=== PATIENT | male | born 1995 | race Caucasian/White ===

== ENCOUNTER 2020-06-28 15:52 | Emergency (ER) | payer SELFPAY ==
[~2020-06-28] VITALS: Ht 182.9 cm; Wt 122.0 kg
[2020-06-28 15:59] VITALS: Ht 182.9 cm; Wt 122.0 kg
[2020-06-28 16:56] LABS: microscopic required? NO
[2020-06-28 17:11] LABS: BASOPHIL % 0.5 % (0.2-1.5); PLATELET COUNT 343 x10^3mcL (152-348); RED CELL DISTRIBUTION WIDTH 13.8 % (12.1-16.2)
[2020-06-28 17:12] LABS: urine erythrocyte NEGATIVE (NEGATIVE)
[2020-06-28 17:29] LABS: CALCIUM 8.7 mg/dL (8.5-10.1); CARBON DIOXIDE 32.1 mmol/L (21-32); CHLORIDE SERUM 103 mmol/L (98-107); CREATININE SERUM 0.9 mg/dL (0.7-1.3); GFR1 > 60 mL/min; GLUCOSE SERUM 93 mg/dL (74-106); SODIUM SERUM 140 mmol/L (136-145)
[2020-06-28 17:42] LABS: ALBUMIN 4.2 g/dL (3.4-5.0); ALKALINE PHOSPHATASE 109 U/L (46-116); ALT/SGPT 49 U/L (16-63); AST/SGOT 26 U/L (15-37); BILIRUBIN TOTAL 0.3 mg/dL (0.20-1.00); CHOLESTEROL 185 mg/dL (<200); LIPASE 89 IU/L (73-393); T4(THYROXINE) 7.2 ug/dL (4.7-13.3); TOTAL PROTEIN, SERUM 7.7 g/dL (6.4-8.2)
[2020-06-28 17:42] LABS: AMPHETAMINE QUAL UR NONE DETECTED (See below)
[2020-06-28 17:48] LABS: HDL CHOLESTEROL 31 mg/dL (40-60)
[2020-06-28 19:41] VITALS: BP 113/68
== END 2020-06-28 19:41 | disposition home or self-care (01) ==
LOC: ED 15:52
PROVIDERS: Emergency Medicine
DX: R07.89 Other chest pain (principal); R10.9 Unspecified abdominal pain; E66.9 Obesity, unspecified; Z68.36 Body mass index [BMI] 36.0-36.9, adult; Z20.828 Contact with and (suspected) exposure to other viral communicable diseases
CPT/HCPCS: 83880; U0003